=== PATIENT | male | born 1955 | race African-American/Black ===

== ENCOUNTER → 2019-01-08 | Day surgery (SDC) | payer MEDICARE, OTHER ==
[~2019-01-08] MED LIST: AMLO10TA4 PO; ASPI-1393 PO; CLON0.2T PO; DOCU-150 PO; FAMO20TA8 PO; HYDR-2510 PO; INSU100C3 SQ; IOHEXOL-300 50 ML BOTTLE IV ONE; LEVVL SQ; LIDOCAINE HCL 1% 20ML VIAL (Pyxis) INJ ONE; LORA0.5T2 PO; METO-539 PO; MULT-1146 PO; RANI-655 PO; SODIUM BICARBONATE 4% (2.4MEQ) 5ML VIAL IV ONE; ZOLP10TA2 PO
== END | disposition home or self-care (01) ==
LOC: RADANGIO 12:40
PROVIDERS: ATTEND Podiatrist Foot & Ankle Surgery
DX: M86.8X7 Other osteomyelitis, ankle and foot (principal); Z79.899 Other long term (current) drug therapy; Z79.82 Long term (current) use of aspirin; Z79.4 Long term (current) use of insulin; Z82.49 Family history of ischemic heart disease and other diseases of the circulatory system; Z83.3 Family history of diabetes mellitus; Z80.8 Family history of malignant neoplasm of other organs or systems; Z81.1 Family history of alcohol abuse and dependence; Z82.5 Family history of asthma and other chronic lower respiratory diseases
CPT/HCPCS: 36010; 36573; 36907; 37248; 75820; 75827; C1725; C1769; J3490; Q9967

== ENCOUNTER → 2021-09-14 | Outpatient (CLI) | payer MEDICARE, MEDICAID ==
[~2021-09-14] MED LIST changes: -ASPI-1393 PO; +ASPI-1497 PO; +ATOR40TA70 PO; +CEPH500C2 PO; -HYDR-2510 PO; +HYDR50TA PO; +INSU100C6 SQ; -IOHEXOL-300 50 ML BOTTLE IV ONE; -LIDOCAINE HCL 1% 20ML VIAL (Pyxis) INJ ONE; -SODIUM BICARBONATE 4% (2.4MEQ) 5ML VIAL IV ONE; +TAMS-11 PO
== END | disposition home or self-care (01) ==
LOC: LAB 10:30
PROVIDERS: ATTEND Specialist
DX: R05.9 Cough, unspecified (principal); Z20.822 Contact with and (suspected) exposure to COVID-19
CPT/HCPCS: 87426; C9803

== ENCOUNTER → 2021-09-15 | Day surgery (SDC) | payer MEDICARE, MEDICAID ==
[~2021-09-15] VITALS: Ht 193 cm; Wt 124.7 kg
[~2021-09-15] MED LIST changes: +ACETAMINOPHEN 325MG TABLET PO PRN; +AMLODIPINE 10MG TABLET PO NR; +ASPIRIN/SOD BICARB/CITRIC ACID 324MG TAB EFF ONE; +CLONIDINE 0.1MG TABLET PO NR; +FENTANYL CITRATE/PF 50MCG/ML 2ML VIAL ONE; +HEPARIN SODIUM 1,000 UNIT/1ML VIAL IV ONE; +IODIXANOL 320MG/ML 100 ML BOTTLE IV ONE; +LIDOCAINE HCL 1% 10 MG/ML 10ML VIAL ONE; +MIDAZOLAM HCL 2 MG/2 ML VIAL ONE; +MORPHINE SULFATE 2 MG/ML CPJ (NOT FOR IM USE) IV PRN; +NICARDIPINE 100MCG/ML 10ML VIAL (CATH LAB) IV ONE; +NITROGLYCERIN 50MCG/ML 10ML VIAL (CATH LAB) IV ONE; +ONDANSETRON HCL 4MG/2ML INJ IV PRN
== END | disposition home or self-care (01) ==
LOC: CCL 10:28
PROVIDERS: ATTEND Specialist
DX: I25.10 Atherosclerotic heart disease of native coronary artery without angina pectoris (principal); E78.5 Hyperlipidemia, unspecified; N18.9 Chronic kidney disease, unspecified; E11.9 Type 2 diabetes mellitus without complications; Z79.899 Other long term (current) drug therapy; Z79.4 Long term (current) use of insulin; Z79.82 Long term (current) use of aspirin; Z98.890 Other specified postprocedural states
CPT/HCPCS: 82962; 93458; C1769; C1887; C1893; J1644; J2250; J3010; J3490; Q9967; 99152; G0500

== ENCOUNTER → 2022-05-11 | Day surgery (SDC) | payer MEDICARE, MEDICAID ==
[~2022-05-11] MED LIST changes: -ACETAMINOPHEN 325MG TABLET PO PRN; -AMLODIPINE 10MG TABLET PO NR; -ASPIRIN/SOD BICARB/CITRIC ACID 324MG TAB EFF ONE; -CLONIDINE 0.1MG TABLET PO NR; -FENTANYL CITRATE/PF 50MCG/ML 2ML VIAL ONE; -HEPARIN SODIUM 1,000 UNIT/1ML VIAL IV ONE; -IODIXANOL 320MG/ML 100 ML BOTTLE IV ONE; -MIDAZOLAM HCL 2 MG/2 ML VIAL ONE; -MORPHINE SULFATE 2 MG/ML CPJ (NOT FOR IM USE) IV PRN; -NICARDIPINE 100MCG/ML 10ML VIAL (CATH LAB) IV ONE; -NITROGLYCERIN 50MCG/ML 10ML VIAL (CATH LAB) IV ONE; -ONDANSETRON HCL 4MG/2ML INJ IV PRN
== END | disposition home or self-care (01) ==
LOC: RADANGIO 09:26
PROVIDERS: ATTEND Podiatrist Foot & Ankle Surgery
DX: M86.8X7 Other osteomyelitis, ankle and foot (principal); Z87.891 Personal history of nicotine dependence; Z79.82 Long term (current) use of aspirin; Z79.4 Long term (current) use of insulin; Z79.899 Other long term (current) drug therapy; Z98.890 Other specified postprocedural states; Z82.49 Family history of ischemic heart disease and other diseases of the circulatory system; Z83.3 Family history of diabetes mellitus
CPT/HCPCS: 36573; C1725; C1769; J3490